=== PATIENT | female | born 1990 | race Caucasian/White ===

== ENCOUNTER 2023-03-22 20:10 | Emergency (ER) | payer OTHER ==
[2023-03-22 20:17] VITALS: BP 120/75; PULSE 86; RESP 18; TEMP 98.8; BMI 24.3
[2023-03-22] MEDS ORDERED: ALBUTEROL SO4 2.5/IPRATROPIUM 0.5 INH SOL 3 ML VIAL.NEB. NEB ONE (21:11)
[2023-03-22] MEDS ORDERED: LORATADINE 10 MG TABLET ONE (21:11)
[2023-03-22] MEDS: LORATADINE 10 MG TABLET PO ONE (21:12)
[2023-03-22] MEDS ORDERED: IBUPROFEN 600 MG TABLET (FP) PO ONE (21:12)
[2023-03-22] MEDS: ALBUTEROL SO4 2.5/IPRATROPIUM 0.5 INH SOL 3 ML VIAL.NEB. NEB ONE (21:12)
[2023-03-22] MEDS: IBUPROFEN 600 MG TABLET (FP) PO ONE (21:12)
== END 2023-03-22 23:00 | disposition home or self-care (01) ==
LOC: JER 20:10
PROC: 3E0F7GC Introduction of Other Therapeutic Substance into Respiratory Tract, Via Natural or Artificial Opening (ICD-10-PCS; principal; 2023-03-22)
DX: R05.9 Cough, unspecified (principal); R06.2 Wheezing; R09.81 Nasal congestion; R11.10 Vomiting, unspecified; J40 Bronchitis, not specified as acute or chronic; Z20.822 Contact with and (suspected) exposure to COVID-19
CPT/HCPCS: 0241U-QW; 71046-TC-FY; 84703; 99284-25